=== PATIENT | female | born 1980 | race Caucasian/White ===

== ENCOUNTER 2018-01-26 13:29 | Emergency (ER) | payer BC ==
[~2018-01-26] VITALS: Ht 167.6 cm; Wt 69.8 kg
[~2018-01-26 13:29] MED LIST: MOME0.1L3 TOP
[2018-01-26 13:34] VITALS: TEMP 36.6; Ht 167.6 cm; Wt 69.8 kg
[2018-01-26] MEDS ORDERED: SODIUM CHLORIDE 0.9% 1000ML 1,000 ML IV STA (13:49)
[2018-01-26 14:29] LABS: BASO % 0.8 %; BASO ABS # 0.05 K/uL (0-0.2); EOS ABS # 0.06 K/uL (0-0.5); HEMATOCRIT 39.9 % (37-47); HEMOGLOBIN 13.9 g/dL (12.0-16.0); IG# 0.01 K/uL (0.00-0.02); LYMPH % 29.4 %; LYMPH ABS # 1.73 K/uL (1.2-3.4); MEAN CELL VOLUME 92.6 fL (80-100); MEAN CORPUSCULAR HEMOGLOBIN 32.3 pg (25-34); MEAN CORPUSCULAR HGB CONC 34.8 g/dl (32-36); MEAN PLATELET VOLUME 8.3 fL (7.4-10.4); MONO % 6.3 %; MONO ABS # 0.37 K/uL (0.11-0.59); NEUT % 62.3 %; NEUT ABS # 3.67 K/uL (1.4-6.5); PLATELET COUNT 323 K/uL (130-400); RED CELL DISTRIBUTION WIDTH CV 12.4 % (11.5-14.5); RED CELL DISTRIBUTION WIDTH SD 42.1 fL (36.4-46.3); WHITE BLOOD COUNT 5.89 K/uL (4.8-10.8)
[2018-01-26] MEDS ORDERED: CHOL400T PO (14:40)
[2018-01-26] MEDS ORDERED: VITACAP26 PO (14:40)
[2018-01-26] MEDS ORDERED: ZINC1TAB PO (14:40)
[2018-01-26 14:44] LABS: ALBUMIN 4.3 gm/dl (3.4-5.0); CALCIUM 8.8 mg/dl (8.5-10.1); CREATININE 0.84 mg/dl (0.60-1.20); POTASSIUM 3.4 mmol/L (3.5-5.1); TOTAL PROTEIN 7.6 gm/dl (6.4-8.2)
[2018-01-26 15:25] VITALS: O2SAT 97
--- NOTE | 2018-01-26 15:34 | DIAGNOSTIC IMAGING REPORT ---
LIMITED (US) CLINICAL HISTORY: 37 years-old Female presenting with EVALUATE OB-LINE OUT MAN/VAGINAL BLEEDING, , last menstrual period 12/21/2017, vaginal bleeding with cramping. TECHNIQUE: Real-time grayscale and M-mode Doppler ultrasound imaging of the pelvis was performed first using a transabdominal probe and subsequently transvaginal for better characterization. Color and spectral Doppler ultrasound imaging of the adnexa was also performed. COMPARISON: CT from 04/28/2016. FINDINGS: Uterus: Possible gestational sac noted in the endometrial cavity. The endometrium is thickened measuring 13 mm. Within this at the fundus there is a 12 x 6 x 6 mm hypoechoic irregular saclike region. This appears to be in the right fundal region. The uterine configuration suggests an arcuate uterus. Anteverted uterus. Cervix long and closed. Right adnexum: Right ovary normal. Right ovary measures 3.1 x 1.9 x 2.1 cm. Normal color Doppler flow and arterial and venous waveforms within the ovarian parenchyma. Left adnexum: Left ovary normal. Left ovary measures 4.6 x 1.7 x 2.2 cm. Normal color Doppler flow and arterial and venous waveforms within the ovarian parenchyma. Other: Trace free fluid. IMPRESSION: 1. Irregular hypoechoic saclike region along the right fundus within the endometrium, which may represent a gestational sac. This is indeterminate and would be considered of unknown location. Close clinical and imaging follow-up with trending beta hCG recommended. 2. Arch uterus suspected. 3. No ovarian torsion. Electronically signed by: John Miramontes M.D. 01/26/2018 3:33 PM Dictated Date/Time: 01/26/2018 3:27 PM
[2018-01-26 16:02] VITALS: BP 139/79; PULSE 88; O2SAT 99
--- NOTE | 2018-01-26 18:28 | EMERGENCY ROOM VISIT NOTE ---
History Report prepared by Carissa: Gwendolyn Godwin Under the Supervision of: Dr. Washington Tomlin D.O. First contact with patient: 13:38 Chief Complaint: VAGINAL BLEEDING Stated Complaint: CRAMPS,BLEEDING AT TIMES,SEVERE PAIN History of Present Illness The patient is a 37 year old female who presents to the Emergency Room with complaints of intermittent vaginal bleeding starting a few days ago. The patient states that she has a history of multiple miscarriages. She reports that her LNMP was December 21 and she missed her most recent cycle. She states that she took a test a week ago that was positive. She reports that she went to OB who did a beta HCG that was at 2018 2 days ago. She reports that yesterday it was 2490. The patient states that she was sent to the ED by them for a transvaginal ultrasound to rule out an ectopic . She notes that the bleeding has been intermittent, with the worst being last night. The patient complains of left sided abdominal cramping that disappeared upon arrival to the ED. The patient denies passing any clots, nausea, vomiting, urinary symptoms, and abnormal bowel movements. Source of History: patient Onset: a few days ago Position: other (vaginal) Quality: other (bleeding) Timing: intermittent Associated Symptoms: + abdominal pain, No nausea, No vomiting, No urinary symptoms Note: The patient denies passing any clots and abnormal bowel. Review of Systems See HPI for pertinent positives & negatives. A total of 10 systems reviewed and were otherwise negative. Past Medical & Surgical Medical Problems: (1) History of chlamydia (2) History of multiple miscarriages Family History Cancer Hypertension Social History Smoking Status: Never Smoker Marital Status: Housing Status: lives with significant other Occupation Status: employed Current/Historical Medications Scheduled Cholecalciferol (Vitamin D), 1 TAB PO DAILY Vitamins C & E (Vitamin C), 1 CAP PO DAILY Zinc Gluconate (Zinc), 1 TAB PO DAILY Allergies Coded Allergies: No Known Allergies (Unverified , 01/26/18) Physical Exam Vital Signs Date Time Temp Pulse Resp B/P (MAP) Pulse Ox O2 Delivery O2 Flow Rate FiO2 01/26/18 16:02 88 20 139/79 99 Room Air 01/26/18 15:25 97 Room Air 01/26/18 13:34 36.6 101 18 151/87 100 Room Air Physical Exam GENERAL: Sitting up in chair, alert, well appearing, well nourished, no distress , non-toxic EYE EXAM: normal conjunctiva. OROPHARYNX: no exudate, no erythema, lips, buccal mucosa, and tongue normal and mucous membranes are moist NECK: supple, no nuchal rigidity, no adenopathy, non-tender LUNGS: Clear to auscultation. Normal chest wall mechanics HEART: no murmurs, S1 normal and S2 normal ABDOMEN: abdomen soft, non-tender, normo-active bowel sounds, no masses, no rebound or guarding. BACK: Back is symmetrical on inspection and there is no deformity, no midline tenderness, no CVA tenderness. SKIN: no rashes and no bruising UPPER EXTREMITIES: upper extremities are grossly normal. LOWER EXTREMITIES: No pitting edema. NEURO EXAM: Normal sensorium, cranial nerves II-XII grossly intact, normal speech, no gross weakness of arms, no gross weakness of legs. Medical Decision & Procedures ER Provider Diagnostic Interpretation: Radiology results as stated below per my review and the radiologist's interpretation: LIMITED (US) CLINICAL HISTORY: 37 years-old Female presenting with EVALUATE OB-AIR BRAKE RIGGER/VAGINAL BLEEDING, , last menstrual period 12/21/2017, vaginal bleeding with cramping. TECHNIQUE: Real-time grayscale and M-mode Doppler ultrasound imaging of the pelvis was performed first using a transabdominal probe and subsequently transvaginal for better characterization. Color and spectral Doppler ultrasound imaging of the adnexa was also performed. COMPARISON: CT from 04/28/2016. FINDINGS: Uterus: Possible gestational sac noted in the endometrial cavity. The endometrium is thickened measuring 13 mm. Within this at the fundus there is a 12 x 6 x 6 mm hypoechoic irregular saclike region. This appears to be in the right fundal region. The uterine configuration suggests an arcuate uterus. Anteverted uterus. Cervix long and closed. Right adnexum: Right ovary normal. Right ovary measures 3.1 x 1.9 x 2.1 cm. Normal color Doppler flow and arterial and venous waveforms within the ovarian parenchyma. Left adnexum: Left ovary normal. Left ovary measures 4.6 x 1.7 x 2.2 cm. Normal color Doppler flow and arterial and venous waveforms within the ovarian parenchyma. Other: Trace free fluid. IMPRESSION: 1. Irregular hypoechoic saclike region along the right fundus within the endometrium, which may represent a gestational sac. This is indeterminate and would be considered of unknown location. Close clinical and imaging follow-up with trending beta hCG recommended. 2. Arch uterus suspected. 3. No ovarian torsion. Electronically signed by: John Miramontes M.D. 01/26/2018 3:33 PM Dictated Date/Time: 01/26/2018 3:27 PM Laboratory Results 01/26/18 14:07 Red Blood Count 4.31, Mean Corpuscular Volume 92.6, Mean Corpuscular Hemoglobin 32.3, Mean Corpuscular Hemoglobin Concent 34.8, Mean Platelet Volume 8.3, Neutrophils (%) (Auto) 62.3, Lymphocytes (%) (Auto) 29.4, Monocytes (%) (Auto) 6.3, Eosinophils (%) (Auto) 1.0, Basophils (%) (Auto) 0.8, Neutrophils # (Auto) 3.67, Lymphocytes # (Auto) 1.73, Monocytes # (Auto) 0.37, Eosinophils # (Auto) 0.06, Basophils # (Auto) 0.05 01/26/18 14:07 Test 01/26/18 14:07 01/26/18 14:15 White Blood Count 5.89 K/uL (4.8-10.8) Red Blood Count 4.31 M/uL (4.2-5.4) Hemoglobin 13.9 g/dL (12.0-16.0) Hematocrit 39.9 % (37-47) Mean Corpuscular Volume 92.6 fL (80-100) Mean Corpuscular Hemoglobin 32.3 pg (25-34) Mean Corpuscular Hemoglobin Concent 34.8 g/dl (32-36) Platelet Count 323 K/uL (130-400) Mean Platelet Volume 8.3 fL (7.4-10.4) Neutrophils (%) (Auto) 62.3 % Lymphocytes (%) (Auto) 29.4 % Monocytes (%) (Auto) 6.3 % Eosinophils (%) (Auto) 1.0 % Basophils (%) (Auto) 0.8 % Neutrophils # (Auto) 3.67 K/uL (1.4-6.5) Lymphocytes # (Auto) 1.73 K/uL (1.2-3.4) Monocytes # (Auto) 0.37 K/uL (0.11-0.59) Eosinophils # (Auto) 0.06 K/uL (0-0.5) Basophils # (Auto) 0.05 K/uL (0-0.2) RDW Standard Deviation 42.1 fL (36.4-46.3) RDW Coefficient of Variation 12.4 % (11.5-14.5) Immature Granulocyte % (Auto) 0.2 % Immature Granulocyte # (Auto) 0.01 K/uL (0.00-0.02) Prothrombin Time 10.5 SECONDS (9.0-12.0) Prothromb Time International Ratio 1.0 (0.9-1.1) Activated Partial Thromboplast Time 25.0 SECONDS (21.0-31.0) Partial Thromboplastin Ratio 1.0 Anion Gap 8.0 mmol/L (3-11) Est Creatinine Clear Calc Drug Dose 85.8 ml/min Estimated GFR () 102.9 Estimated GFR (Non- 88.8 BUN/Creatinine Ratio 16.6 (10-20) Calcium Level 8.8 mg/dl (8.5-10.1) Total Bilirubin 0.6 mg/dl (0.2-1) Direct Bilirubin 0.2 mg/dl (0-0.2) Aspartate Amino Transf (AST/SGOT) 15 U/L (15-37) Alanine Aminotransferase (ALT/SGPT) 24 U/L (12-78) Alkaline Phosphatase 49 U/L (45-117) Total Protein 7.6 gm/dl (6.4-8.2) Albumin 4.3 gm/dl (3.4-5.0) Human Chorionic Gonadotropin, Quant 2793 mIU/mL Urine Color YELLOW Urine Appearance CLEAR (CLEAR) Urine pH 5.5 (4.5-7.5) Urine Specific [place] 1.012 (1.000-1.030) Urine Protein NEG (NEG) Urine Glucose (UA) NEG (NEG) Urine Ketones NEG (NEG) Urine Occult Blood NEG (NEG) Urine Nitrite NEG (NEG) Urine Bilirubin NEG (NEG) Urine Urobilinogen NEG (NEG) Urine Leukocyte Esterase NEG (NEG) Urine Test POS (NEG) Laboratory results per my review. Medications Administered Medications (Trade) Dose Ordered Sig/Elizabeth Route Start Time Stop Time Status Last Admin Dose Admin Sodium Chloride 1,000 ml @ 999 mls/hr Q1H1M STAT IV 01/26/18 13:49 01/26/18 14:49 DC 01/26/18 13:49 999 MLS/HR ED Course ED COURSE: Vital signs were reviewed and showed hypertension and tachycardia. The patients medical record was reviewed The above diagnostic studies were performed and reviewed. ED treatments and interventions as stated above. 1344: The patient was evaluated in room A10. A complete history and physical examination was performed. 1349: Ordered NSS 1000 ml @ 999 mls/hr IV. 1549: I discussed the patient's case with Dr. Cornejo -OB-AIR BRAKE RIGGER. They will follow up with the patient in the office. 1552: Upon reevaluation, the patient is resting comfortably.I discussed my findings with the patient and she understands and agrees with the treatment plan. Based on the patients age, coexisting illnesses, exam and lab findings the decision to treat as an outpatient was made. The patient remained stable while under my care. The patient appeared well at the time of discharge. Medical Decision Differential diagnoses includes but is not limited to appendicitis, diverticulitis, small bowel obstruction, malignancy, hernia, urinary tract infection, torsion, and ectopic , perforation, trauma, infectious. Patient is a 37-year-old female who presents the ER with a recent positive test with last known menstrual period of December 21 for abdominal pain and intermittent spotting. Patient has been follow-up with OB and had beta- hCGs trended. Last was 2400 and that was done yesterday. CBC along with BMP, LFTs, bilirubin was unremarkable. Beta-hCG was 2700. UA was negative. Ultrasound showed an irregular hypoechoic saclike in the region of the right fundus within the endometrium. Question gestational sac. Discussed this with OB and reviewed findings. They recommended evaluation in the office tomorrow. At this time there is no signs of ectopic. Patient was updated at bedside. She was hemodynamically stable. Discharge follow-up with OB tomorrow. Oh positive. No RhoGam given. discussed with Pt concerning signs and symptoms to watch out for. Pt was instructed to follow up with their PCP and discussed with the patient their option to return to the ED at anytime for persistent or worsening symptoms. The appropriate anticipatory guidance and out-patient management, including indications for return to the emergency department, were explained at length to the patient and understood. Medication Reconcilliation Current Medication List: was personally reviewed by me Blood Pressure Screening Patient's blood pressure: Elevated blood pressure Blood pressure disposition: Referred to PCP Consults Time Called: [phone] Consulting Physician: Dr. Cornejo -OB-AIR BRAKE RIGGER Returned Call: [phone] I discussed the patient's case with Dr. Cornejo -OB-AIR BRAKE RIGGER. They will follow up with the patient in the office. Impression Primary Impression: Abdominal pain affecting Scribe Attestation The scribe's documentation has been prepared under my direction and personally reviewed by me in its entirety. I confirm that the note above accurately reflects all work, treatment, procedures, and medical decision making performed by me. Departure Information Dispostion Home / Self-Care Referrals John Manzo M.D. (PCP) Forms HOME CARE DOCUMENTATION FORM, IMPORTANT VISIT INFORMATION, WORK / SCHOOL INSTRUCTIONS Patient Instructions My [facility] Additional Instructions Please follow up with your ADMINISTRATIVE RECEPTIONIST with in the next 24 hours. Any worsening of your symptoms, please return to the ED immediately. This includes any fevers greater than 100.4, worsening pain, chest pain, shortness breath, persistent nausea, vomiting, unable to eat or drink, or any other concerning signs or symptoms from your standpoint. Please call ADMINISTRATIVE RECEPTIONIST as soon as you leave here and request an appointment for tomorrow. You will need repeat evaluation and have your beta-hCG recheck.
--- NOTE | 2018-01-27 08:09 | DIAGNOSTIC IMAGING REPORT ---
LIMITED (US) CLINICAL HISTORY: 37 years-old Female presenting with EVALUATE OB-ENVIRONMENTAL PROJECT MANAGER/VAGINAL BLEEDING, , last menstrual period 12/21/2017, vaginal bleeding with cramping. TECHNIQUE: Real-time grayscale and M-mode Doppler ultrasound imaging of the pelvis was performed first using a transabdominal probe and subsequently transvaginal for better characterization. Color and spectral Doppler ultrasound imaging of the adnexa was also performed. COMPARISON: CT from 04/28/2016. FINDINGS: Uterus: Possible gestational sac noted in the endometrial cavity. The endometrium is thickened measuring 13 mm. Within this at the fundus there is a 12 x 6 x 6 mm hypoechoic irregular saclike region. This appears to be in the right fundal region. The uterine configuration suggests an arcuate uterus. Anteverted uterus. Cervix long and closed. Right adnexum: Right ovary normal. Right ovary measures 3.1 x 1.9 x 2.1 cm. Normal color Doppler flow and arterial and venous waveforms within the ovarian parenchyma. Left adnexum: Left ovary normal. Left ovary measures 4.6 x 1.7 x 2.2 cm. Normal color Doppler flow and arterial and venous waveforms within the ovarian parenchyma. Other: Trace free fluid. IMPRESSION: 1. Irregular hypoechoic saclike region along the right fundus within the endometrium, which may represent a gestational sac. This is indeterminate and would be considered of unknown location. Close clinical and imaging follow-up with trending beta hCG recommended. 2. Arch uterus suspected. 3. No ovarian torsion. Electronically signed by: John Miramontes M.D. 01/26/2018 3:33 PM Dictated Date/Time: 01/26/2018 3:27 PM
== END 2018-01-26 16:07 | disposition home or self-care (01) ==
LOC: C.EDB 13:34 → C.EDA 16:07
DX: O99.89 Other specified diseases and conditions complicating pregnancy, childbirth and the puerperium (principal); R10.12 Left upper quadrant pain; R10.32 Left lower quadrant pain; O20.8 Other hemorrhage in early pregnancy; Z79.899 Other long term (current) drug therapy

== ENCOUNTER 2018-02-01 14:45 | Inpatient (IN) | payer BC ==
[~2018-02-01] VITALS: Ht 167.6 cm; Wt 68.0 kg
[~2018-02-01 14:45] MED LIST changes: +CHOL400T PO; -MOME0.1L3 TOP; +VITACAP26 PO; +ZINC1TAB PO
[2018-02-01] MEDS ORDERED: ASCO500T16 PO (14:57)
[2018-02-01] MEDS ORDERED: SODIUM CHLORIDE 0.9% 1000ML 1,000 ML IV ONE (15:06)
[2018-02-01] MEDS ORDERED: SODIUM CHLORIDE 0.9% 1000ML 1,000 ML IV STA (15:06)
--- NOTE | 2018-02-01 15:14 | EMERGENCY ROOM VISIT NOTE ---
History Report prepared by Carissa: Elliott Ventura Under the Supervision of: Dr. Cristian Perez M.D. First contact with patient: 14:55 Chief Complaint: PELVIC PAIN Stated Complaint: PELVIC PAIN, BLEEDING, REFERRED History of Present Illness The patient is a 37 year old female who presents to the Emergency Room with complaints of coming and going pelvic pain for the past week that was a sharp cramping pain that last for around 20 minutes. She states that a week ago and today she had an episode of severe pain, sweating, and she was unable to move due to the pain. The patient additionally has been having vaginal bleeding for the past week, though she is not passing any clots. The patient states that she had an ultrasound today, and she was told to come to the ED for evaluation due to a left tube ectopic . She states that she has a history of 4 miscarriages, and she has had no full term pregnancies. She has no history of ectopics. The patient states that her last period was December 21, and it was normal. She denies any lightheadedness or dizziness. She does not have any active medical problems. Source of History: patient Onset: a week ago Position: pelvis Quality: sharp, cramping Timing: other (coming and going) Note: Associated symptoms: Vaginal bleeding and sweating Review of Systems See HPI for pertinent positives & negatives. A total of 10 systems reviewed and were otherwise negative. Past Medical & Surgical Medical Problems: (1) History of chlamydia (2) History of multiple miscarriages Old medical records were reviewed. Nurse's notes were reviewed and I agree with. Family History Cancer Hypertension Social History Smoking Status: Never Smoker Drug Use: none Marital Status: Housing Status: lives with significant other Occupation Status: employed Current/Historical Medications Scheduled Ascorbic Acid (Ascorbic Acid), 500 MG PO DAILY Cholecalciferol (Vitamin D), 1 TAB PO DAILY Zinc Gluconate (Zinc), 1 TAB PO DAILY Allergies Coded Allergies: No Known Allergies (Unverified , 02/01/18) Physical Exam Vital Signs Date Time Temp Pulse Resp B/P (MAP) Pulse Ox O2 Delivery O2 Flow Rate FiO2 02/01/18 14:49 36.7 85 16 135/86 96 Room Air Physical Exam General: Non-ill appearing young female in no acute distress. HEENT: Normal cephalic atraumatic. Pupils are equal round and reactive to light. Extraocular movements are intact. Oropharynx is pink with moist mucous membranes. No swelling of the mouth lips or tongue. Neck: Supple with a midline trachea. No meningeal signs or stiffness, no JVD or bruits. No Stridor. Chest: Clear to auscultation bilaterally. No wheezes or rhonchi. No increased work of breathing. Heart: regular rate and rhythm. Abdomen: Mild tenderness in the left lower abdomen. No peritonitis. Soft, nondistended without rebound guarding or rigidity. Extremities: No cyanosis clubbing or edema. No calf tenderness or assymetry Spine/Back. Non tender to palpation. No CVA tenderness Skin: Good turgor without rashes. Neurologic exam: Cranial nerves two through 12 are intact. Motor and sensation are intact and symmetrical throughout. Medical Decision & Procedures Laboratory Results 02/01/18 15:37 Red Blood Count 4.18, Mean Corpuscular Volume 92.1, Mean Corpuscular Hemoglobin 32.1, Mean Corpuscular Hemoglobin Concent 34.8, Mean Platelet Volume 8.1, Neutrophils (%) (Auto) 63.4, Lymphocytes (%) (Auto) 28.7, Monocytes (%) (Auto) 5.9, Eosinophils (%) (Auto) 1.2, Basophils (%) (Auto) 0.7, Neutrophils # (Auto) 4.74, Lymphocytes # (Auto) 2.15, Monocytes # (Auto) 0.44, Eosinophils # (Auto) 0.09, Basophils # (Auto) 0.05 02/01/18 15:37 Test 02/01/18 15:37 White Blood Count 7.48 K/uL (4.8-10.8) Red Blood Count 4.18 M/uL (4.2-5.4) Hemoglobin 13.4 g/dL (12.0-16.0) Hematocrit 38.5 % (37-47) Mean Corpuscular Volume 92.1 fL (80-100) Mean Corpuscular Hemoglobin 32.1 pg (25-34) Mean Corpuscular Hemoglobin Concent 34.8 g/dl (32-36) Platelet Count 298 K/uL (130-400) Mean Platelet Volume 8.1 fL (7.4-10.4) Neutrophils (%) (Auto) 63.4 % Lymphocytes (%) (Auto) 28.7 % Monocytes (%) (Auto) 5.9 % Eosinophils (%) (Auto) 1.2 % Basophils (%) (Auto) 0.7 % Neutrophils # (Auto) 4.74 K/uL (1.4-6.5) Lymphocytes # (Auto) 2.15 K/uL (1.2-3.4) Monocytes # (Auto) 0.44 K/uL (0.11-0.59) Eosinophils # (Auto) 0.09 K/uL (0-0.5) Basophils # (Auto) 0.05 K/uL (0-0.2) RDW Standard Deviation 42.2 fL (36.4-46.3) RDW Coefficient of Variation 12.5 % (11.5-14.5) Immature Granulocyte % (Auto) 0.1 % Immature Granulocyte # (Auto) 0.01 K/uL (0.00-0.02) Anion Gap 7.0 mmol/L (3-11) Est Creatinine Clear Calc Drug Dose 89.0 ml/min Estimated GFR () 107.5 Estimated GFR (Non- 92.8 BUN/Creatinine Ratio 14.9 (10-20) Calcium Level 8.8 mg/dl (8.5-10.1) Laboratory studies as stated above per my review. Medications Administered Medications (Trade) Dose Ordered Sig/Elizabeth Route Start Time Stop Time Status Last Admin Dose Admin Sodium Chloride 1,000 ml @ 999 mls/hr Q1H1M STAT IV 02/01/18 15:06 02/01/18 16:06 DC 02/01/18 15:55 999 MLS/HR ED Course 1455: Past medical records reviewed. The patient was evaluated in room C6, and a complete history and physical examination were performed. 1506: Sodium Chloride 1000 ml @ 150 mls/hr IV, Sodium Chloride 1000 ml @ 999 mls /hr IV 1509: I discussed the patient's case with Dr. Garcia PRE SALES TECHNICAL ENGINEER, and she is going to come evaluate the patient for further management. 1518: The patient is still waiting for the blood work to come back. 1612: I reevaluated the patient, and she is going to go to the OR. Medical Decision Differentials include, but are not limited to; ectopic , anemia, infection, electrolyte or metabolic abnormality. This patient comes in as described above. She has been having vaginal bleeding and left abdominal pain for about a week. She was seen here and a negative ultrasound. She follow-up with her doctor and saw her whiting can worker yesterday. She had outpatient ultrasound today at [facility] which showed a left adnexal ectopic . there is complex free fluid in the left adnexal area. On my initial exam, she looks well and has stable vital signs. Her abdomen is minimally tender. IV access established and blood work was obtained. I called and consulted the PRE SALES TECHNICAL ENGINEER doctor to come see her. She was typed and screened. Her hemoglobin is stable. Her vital signs are stable. She has no elevation of her white count. She has no acute electrolyte or metabolic abnormalities. She was seen by the whiting can worker who is going to take her to the operating room for treatment of her ectopic . She was hydrated with IV normal saline and kept n.p.o. while in the ER Medication Reconcilliation Current Medication List: was personally reviewed by me Blood Pressure Screening Patient's blood pressure: Elevated blood pressure Monitored by the hospitalist Consults Time Called: 1507 Consulting Physician: Dr. Garcia PRE SALES TECHNICAL ENGINEER Returned Call: [phone] I discussed the patient's case with Dr. Garcia PRE SALES TECHNICAL ENGINEER, and she is going to come evaluate the patient for further management. Impression Primary Impression: Ectopic Scribe Attestation The scribe's documentation has been prepared under my direction and personally reviewed by me in its entirety. I confirm that the note above accurately reflects all work, treatment, procedures, and medical decision making performed by me. Departure Information Dispostion Being Evaluated By Surgeon John Park M.D. (PCP) Patient Instructions My [facility]
[2018-02-01 15:52] LABS: BASO % 0.7 %; BASO ABS # 0.05 K/uL (0-0.2); EOS % 1.2 %; EOS ABS # 0.09 K/uL (0-0.5); HEMATOCRIT 38.5 % (37-47); HEMOGLOBIN 13.4 g/dL (12.0-16.0); IG# 0.01 K/uL (0.00-0.02); LYMPH % 28.7 %; LYMPH ABS # 2.15 K/uL (1.2-3.4); MEAN CELL VOLUME 92.1 fL (80-100); MEAN CORPUSCULAR HEMOGLOBIN 32.1 pg (25-34); MEAN CORPUSCULAR HGB CONC 34.8 g/dl (32-36); MEAN PLATELET VOLUME 8.1 fL (7.4-10.4); MONO % 5.9 %; MONO ABS # 0.44 K/uL (0.11-0.59); NEUT % 63.4 %; NEUT ABS # 4.74 K/uL (1.4-6.5); PLATELET COUNT 298 K/uL (130-400); RED CELL DISTRIBUTION WIDTH CV 12.5 % (11.5-14.5); RED CELL DISTRIBUTION WIDTH SD 42.2 fL (36.4-46.3); WHITE BLOOD COUNT 7.48 K/uL (4.8-10.8)
[2018-02-01 16:07] LABS: CALCIUM 8.8 mg/dl (8.5-10.1); CREATININE 0.81 mg/dl (0.60-1.20); POTASSIUM 3.3 mmol/L (3.5-5.1)
[2018-02-01] MEDS ORDERED: ROCURONIUM BROMIDE 10 MG/ML 5 ML VIAL ONE (16:16)
[2018-02-01] MEDS ORDERED: PROPOFOL IV EMULSION 10 MG/ML 20 ML VIAL ONE (16:16)
[2018-02-01] MEDS ORDERED: LARYING-O-JET KIT (LTA) ONE (16:16)
[2018-02-01] MEDS ORDERED: KETOROLAC TROMETHAMINE 30 MG/ML VIAL ONE (16:16)
[2018-02-01] MEDS ORDERED: LIDOCAINE HCL 2% 2 ML VIAL (20MG/ML) ONE (16:16)
[2018-02-01] MEDS ORDERED: DEXAMETHASONE SOD INJ 4 MG/ML VIAL ONE (16:16)
[2018-02-01] MEDS ORDERED: GLYCOPYRROLATE INJ 0.2 MG/ML VIAL ONE (16:16)
[2018-02-01] MEDS ORDERED: ONDANSETRON INJ 2 MG/ML 2 ML VIAL ONE (16:16)
[2018-02-01] MEDS ORDERED: FENTANYL CITRATE INJ 50 MCG/1 ML 2 ML VIAL ONE (16:16)
[2018-02-01] MEDS ORDERED: NEOSTIGMINE METHYLSULFATE 5 MG/5 ML SYR ONE (16:16)
[2018-02-01] MEDS ORDERED: MIDAZOLAM HCL 1 MG/ML 2ML VIAL ONE (16:16)
--- NOTE | 2018-02-01 17:14 | HISTORY & PHYSICAL EXAMINATION ---
DATE OF ADMISSION: 02/01/2018 CHIEF COMPLAINT: Sent from office for ectopic . HISTORY OF PRESENT ILLNESS: The patient is a 37-year-old G5, P0-1-3-0 at 6 weeks of gestation by her last period on 12/21/2017, who started to have vaginal spotting and pelvic pain about a week ago. Pain was coming on and off, and the spotting has been mild. She was seen in the ER last week and found to have positive beta hCG at count of 2700, and there was no definable intrauterine . Her count increased to 3800 then to 5800. Pain has been stable and recommended to call with increased pain. Last night, her pain got worse. It started to be sharp, low in the pelvis, and she was unable to move. She was sweating and had nausea with pain. She woke up this morning and went to her work. Pain was still there. She called the office, and recommended to come in for US. She had ultrasound today at [facility]. Ultrasound showed there was no intrauterine , and there was an ectopic noted on the left adnexa with a measurable pole, yolk sac, and cardiac activity of 107 beats per minute. She was directed to ER for further management. Then I was called by ER physician. When I encountered her in the ER room, she was sitting on the chair, as dressed and appeared to be comfortable, and talking. She states her pain is mild but is still there. It has not been sharp today. She denies dizziness, lightheadedness, fever, chills, chest pain, shortness of breath, difficulty with urination or bowel movements. She states her spotting has been mild. She ate lunch around 11:00 a.m. and nothing since then. The patient has poor OB history. She is not sure, but she said she miscarried 4 pregnancies before, one was IVF and she had twins, 1 baby did not survive, and other baby had to come out with it, she delivered them around 20 weeks. She had another 3 miscarriages in early stages, and she also has a history of laparoscopy to open up her tubes which were all blocked from chlamydia infection in 2001. The patient says she was a smoker but she quit. She started again, and she quit again. Her periods had been irregular, every 25-27 days, except the last cycle which was 22 days. She was using calendar method and avoiding , but states it failed as her cycle was short at 22 days. She has been with the same partner, her for 11 years. PAST MEDICAL HISTORY: As above, history of chlamydia as a teenager and history of multiple miscarriages, history of premature labor of twins, history of PID. PAST SURGICAL HISTORY: Tonsillectomy and laparoscopy for tubal obstruction. SOCIAL HISTORY: The patient is , lives with her , and she works in a jewelry store. The patient was a smoker but she quit. She denies alcohol or drug use. GYNECOLOGIC HISTORY: As above. ALLERGIES: No known drug allergies. MEDICATIONS: Vitamin D, vitamin C and E, and zinc tablets. PHYSICAL EXAMINATION: VITAL SIGNS: Her blood pressure is 135/86, pulse 85, temperature 36.7, pulse oximetry 96% on room air. GENERAL: She is alert, oriented x3, not in acute distress. She is comfortable talking. CARDIOVASCULAR SYSTEM: S1 and S2, RRR. LUNGS: Clear to auscultation bilaterally. ABDOMEN: Soft, nontender, nondistended. Bowel sounds present. She has left lower quadrant tenderness upon deep palpation. No rebound. EXTREMITIES: Nontender. No edema. PELVIC: External genitalia within normal limits. Normal labia. Speculum exam shows normal vagina. There is minimal dark bloody discharge on the vaginal burns. Cervix looks closed and nulliparous. There is bloody mucus on the cervix. Cultures were taken. Bimanual exam shows cervical motion tenderness and left adnexal pain. Uterus is anteverted, slightly enlarged, about 8 weeks size. Right adnexa nonpalpable, nontender. Left adnexa is nonpalpable but tender to palpation. LABORATORY DATA: Patient is drawn CBC and chemistry, they are still pending. ASSESSMENT AND PLAN: The patient is a 37-year-old G5, P0-1-3-0 at 6 weeks by her LMP of 12/21/2017 and presenting with elevated beta hCG, no intrauterine , ultrasound showing ectopic with yolk sac and heartbeat on the left adnexa. Vital signs are stable and afebrile. Clinically stable. Discussed the findings, the treatment options, and recommended surgical treatment of ectopic . Understands that surgery has risks of anesthesia, bleeding, infection, injury to the surrounding organs like bowel, bladder, adhesion, scarring. She understands that tubal may be treated with salpingostomy or salpingectomy which may be needed depending on the findings. She prefers to save the tube if we can. Discussed methotrexate treatment as well, which may fail due to presence of heart rate and had high levels of beta hCG. The patient understands. She is fully informed, and she agreed with the plan, and she signed the informed consent, and all questions were answered. LEONIDAS
[2018-02-01] MEDS ORDERED: CISATRACURIUM BESYLATE IV SOLN 2 MG/ML 10 ML VIAL ONE (18:18)
[2018-02-01] MEDS ORDERED: BUPIVACAINE 0.5 % 5 MG/1 ML PF 10ML VIAL ONE (20:01)
--- NOTE | 2018-02-01 20:44 | OB/GYN Progress Note ---
INTERMEDIATE CARD TENDER Progress Note Date of Service: February 01, 2018. Late entry from 1600 Patient's CBC is back: Last 24 Hours Test 02/01/18 15:37 02/01/18 20:39 White Blood Count 7.48 K/uL Red Blood Count 4.18 M/uL Hemoglobin 13.4 g/dL Hematocrit 38.5 % Mean Corpuscular Volume 92.1 fL Mean Corpuscular Hemoglobin 32.1 pg Mean Corpuscular Hemoglobin Concent 34.8 g/dl Platelet Count 298 K/uL Mean Platelet Volume 8.1 fL Neutrophils (%) (Auto) 63.4 % Lymphocytes (%) (Auto) 28.7 % Monocytes (%) (Auto) 5.9 % Eosinophils (%) (Auto) 1.2 % Basophils (%) (Auto) 0.7 % Neutrophils # (Auto) 4.74 K/uL Lymphocytes # (Auto) 2.15 K/uL Monocytes # (Auto) 0.44 K/uL Eosinophils # (Auto) 0.09 K/uL Basophils # (Auto) 0.05 K/uL RDW Standard Deviation 42.2 fL RDW Coefficient of Variation 12.5 % Immature Granulocyte % (Auto) 0.1 % Immature Granulocyte # (Auto) 0.01 K/uL Sodium Level 138 mmol/L Potassium Level 3.3 mmol/L Chloride Level 106 mmol/L Carbon Dioxide Level 25 mmol/L Anion Gap 7.0 mmol/L Blood Urea Nitrogen 12 mg/dl Creatinine 0.81 mg/dl Est Creatinine Clear Calc Drug Dose 89.0 ml/min Estimated GFR () 107.5 Estimated GFR (Non- 92.8 BUN/Creatinine Ratio 14.9 Random Glucose 89 mg/dl Calcium Level 8.8 mg/dl Human Chorionic Gonadotropin, Quant 9128 mIU/mL VSS Afebrile OR is notified Will take her to OR after emergencies will be over Continue to monitor closely
[2018-02-01] MEDS ORDERED: ZOLPIDEM TARTRATE 5 MG TAB PO PRN (20:45)
--- NOTE | 2018-02-01 20:49 | OB/GYN Progress Note ---
INDUSTRIAL SPRAYPAINTER Progress Note Date of Service: February 01, 2018. Patient was called to OR and was ready in PACU for planned surgery Dr. Camacho was interviewing her but then he was called to ICU for another emergency He had to hold on the case for tonight Patient feels well no complaints No pain Has been ambulating to BR with no dizziness VSS Afebrile Date Time Temp Pulse Resp B/P (MAP) Pulse Ox O2 Delivery O2 Flow Rate FiO2 02/01/18 19:05 75 18 133/74 97 Room Air 02/01/18 17:38 77 18 132/60 100 Room Air 02/01/18 14:49 36.7 85 16 135/86 96 Room Air Discussed the situation and the reason for her case to be delayed and she understands Plan to admit her to [facility] floor for close monitoring and repeat H&H and take to OR with next available opening All questions were answered
[2018-02-01] MEDS ORDERED: CEFAZOLIN SOD 2000MG/15 ML IV PUSH IV SCH (21:00)
[2018-02-01 22:20] VITALS: BP 110/62; PULSE 68; TEMP 36.7; O2SAT 99; Ht 167.6 cm; Wt 68.0 kg
[2018-02-01] MEDS: LACTATED RINGER'S 1000ML 1,000 ML IV SCH (22:26)
[2018-02-01 22:36] LABS: BASO % 0.6 %; BASO ABS # 0.04 K/uL (0-0.2); EOS % 2.2 %; EOS ABS # 0.14 K/uL (0-0.5); HEMATOCRIT 36.7 % (37-47); HEMOGLOBIN 12.7 g/dL (12.0-16.0); IG# 0.01 K/uL (0.00-0.02); LYMPH % 39.6 %; LYMPH ABS # 2.52 K/uL (1.2-3.4); MEAN CELL VOLUME 93.6 fL (80-100); MEAN CORPUSCULAR HEMOGLOBIN 32.4 pg (25-34); MEAN CORPUSCULAR HGB CONC 34.6 g/dl (32-36); MEAN PLATELET VOLUME 8.2 fL (7.4-10.4); MONO % 8.5 %; MONO ABS # 0.54 K/uL (0.11-0.59); NEUT % 48.9 %; NEUT ABS # 3.12 K/uL (1.4-6.5); PLATELET COUNT 298 K/uL (130-400); RED CELL DISTRIBUTION WIDTH CV 12.7 % (11.5-14.5); RED CELL DISTRIBUTION WIDTH SD 43.3 fL (36.4-46.3); WHITE BLOOD COUNT 6.37 K/uL (4.8-10.8)
[2018-02-01 23:20] VITALS: BP 103/55; PULSE 81; TEMP 36.7; O2SAT 99
[2018-02-02] VITALS (9 sets, daily range): BP systolic 97–126; BP diastolic 48–73; PULSE 58–91; TEMP 36.3–36.8; O2SAT 96–100
[2018-02-02 05:31] LABS: BASO ABS # 0.04 K/uL (0-0.2); EOS % 2.9 %; EOS ABS # 0.12 K/uL (0-0.5); HEMATOCRIT 32.9 % (37-47); HEMOGLOBIN 11.5 g/dL (12.0-16.0); LYMPH % 34.2 %; LYMPH ABS # 1.41 K/uL (1.2-3.4); MEAN CELL VOLUME 93.5 fL (80-100); MEAN CORPUSCULAR HEMOGLOBIN 32.7 pg (25-34); MEAN PLATELET VOLUME 7.9 fL (7.4-10.4); MONO % 12.9 %; MONO ABS # 0.53 K/uL (0.11-0.59); NEUT ABS # 2.02 K/uL (1.4-6.5); PLATELET COUNT 234 K/uL (130-400); RED CELL DISTRIBUTION WIDTH CV 12.6 % (11.5-14.5); RED CELL DISTRIBUTION WIDTH SD 42.5 fL (36.4-46.3); WHITE BLOOD COUNT 4.12 K/uL (4.8-10.8)
[2018-02-02] MEDS ORDERED: ACETAMINOPHEN 325 MG TAB PO PRN ×2 (05:45→10:15)
[2018-02-02] MEDS ORDERED: ACETAMINOPHEN 325 MG TAB ONE (06:07)
[2018-02-02] MEDS: LACTATED RINGER'S 1000ML 1,000 ML IV SCH (06:08)
[2018-02-02] MEDS ORDERED: DEXAMETHASONE SOD INJ 4 MG/ML VIAL ONE (07:37)
[2018-02-02] MEDS ORDERED: PROPOFOL IV EMULSION 10 MG/ML 20 ML VIAL ONE (07:37)
[2018-02-02] MEDS ORDERED: FENTANYL CITRATE INJ 50 MCG/1 ML 2 ML VIAL ONE ×2 (07:37)
[2018-02-02] MEDS ORDERED: ONDANSETRON INJ 2 MG/ML 2 ML VIAL ONE (07:37)
[2018-02-02] MEDS ORDERED: MIDAZOLAM HCL 1 MG/ML 2ML VIAL ONE (07:37)
[2018-02-02] MEDS ORDERED: LIDOCAINE HCL 2% 2 ML VIAL (20MG/ML) ONE (07:37)
[2018-02-02] MEDS ORDERED: D5W AND LACTATED RINGERS 1,000 ML IV SCH ×2 (07:45→10:13)
--- NOTE | 2018-02-02 07:59 | History & Physical Bridge Note ---
H&P Re-Evaluation Bridge Note: I have examined the patient, reviewed the History & Physical and in the interval since the performance of the History & Physical I have noted the following changes of clinical significance: No changes noted
[2018-02-02] MEDS ORDERED: ACETAMINOPHEN 1000 MG/100 ML IV IV ONE (08:09)
[2018-02-02] MEDS ORDERED: LIDOCAINE HCL 2% JELLY 30 ML TUBE ONE (08:09)
[2018-02-02] MEDS ORDERED: BUPIVACAINE 0.5 % 5 MG/1 ML PF 10ML VIAL ONE (08:27)
[2018-02-02] MEDS ORDERED: CEFAZOLIN SOD 1 GM VIAL ONE (09:00)
[2018-02-02] MEDS ORDERED: GLYCOPYRROLATE INJ 0.2 MG/ML VIAL ONE (09:20)
[2018-02-02] MEDS ORDERED: NEOSTIGMINE METHYLSULFATE 5 MG/5 ML SYR ONE (09:20)
[2018-02-02] MEDS ORDERED: ROCURONIUM BROMIDE 10 MG/ML 5 ML VIAL ONE (09:20)
[2018-02-02] MEDS ORDERED: FENTANYL CITRATE INJ 50 MCG/1 ML 2 ML VIAL IV PRN (09:45)
[2018-02-02] MEDS ORDERED: ONDANSETRON INJ 2 MG/ML 2 ML VIAL IV PRN ×2 (09:45→10:15)
[2018-02-02] MEDS ORDERED: EpHEDrine SULFATE INJ 50 MG/ML AMP IV PRN (09:45)
[2018-02-02] MEDS ORDERED: ATROPINE SULFATE 0.1 MG/ML 5ML SYR IV PRN (09:45)
[2018-02-02] MEDS ORDERED: HYDROmorphone INJ 0.5 MG/0.5 ML SYR IV PRN (09:45)
[2018-02-02] MEDS ORDERED: EpHEDrine SULFATE 50MG/5ML SYR ONE (09:56)
--- NOTE | 2018-02-02 10:08 | [facility] Post Operative Brief Note ---
Immediate Operative Summary Operative Date February 02, 2018. Pre-Operative Diagnosis Left Adnexal Ectopic Post-Operative Diagnosis Left Tubal Ectopic Procedure(s) Performed Exam under Anesthesia, Operative Laparoscopic Treatment of Ectopic Pregancy, Left Salpingectomy Surgeon Dr. Garcia Tub Mender Surgeon(s) Dr. Shivam Vuong Estimated Blood Loss 50 cc Findings Consistent with Post-Op Diagnosis Fluids (cc crystalloids) 1000 ml Specimens A: left tubal Drains english 60 ml urine Anesthesia Type General Complication(s) none Disposition Disposition: Recovery Room / PACU Overlapping Procedure I was present for: the critical portions of procedure. I was immediately available: during the entire case
[2018-02-02] MEDS ORDERED: KETOROLAC TROMETHAMINE 30 MG/ML VIAL IV. PRN (10:15)
[2018-02-02] MEDS ORDERED: OXYCODONE/ACETAMINOPHEN 5-325 TAB PO PRN ×2 (10:15)
[2018-02-02] MEDS ORDERED: BISACODYL 10 MG SUPP PR PRN (10:15)
[2018-02-02] MEDS ORDERED: PROMETHAZINE HCL INJ 12.5 MG in SODIUM CHLORIDE 0.9% 50ML 50 ML IV PRN (10:15)
[2018-02-02] MEDS ORDERED: MAGNESIUM HYDROXIDE SUSP 30 ML UDC PO PRN (10:15)
[2018-02-02] MEDS ORDERED: MEPERIDINE HCL 50 MG/ML CARP IV PRN (10:15)
[2018-02-02] MEDS ORDERED: IBUPROFEN 600 MG TAB PO PRN (10:15)
[2018-02-02] MEDS ORDERED: PROMETHAZINE HCL INJ 25 MG in SODIUM CHLORIDE 0.9% 50ML 50 ML IV PRN (10:15)
[2018-02-02] MEDS ORDERED: MTR600X PO (10:36)
[2018-02-02] MEDS ORDERED: OXYC-57 PO (10:36)
--- NOTE | 2018-02-02 10:37 | Discharge Instructions ---
Discharge Instructions Date of Service February 02, 2018. Admission Reason for Admission: Ectopic Discharge Discharge Diagnosis / Problem: Laparoscopy, left salpingectomy Discharge Goals Goal(s): Routine recovery after surgery Activity Recommendations Activity Limitations: as noted below ACTIVITY RECOMMENDATIONS: * Rest the first 2-3 days. You should be back to your normal activity levels by day 3. * No heavy lifting for 2 weeks. * No intercourse, tampons or douching for 1-2 weeks. * You may shower the next day. * Do not drive anytime that you are taking narcotic pain medicines. RETURN TO SCHOOL/WORK: * May return to school or work after 2-3 days. DIET: Nausea may occur in the immediate post-operative period. If so, take clear liquids such as tea, bouillon, apple juice until all nausea has subsided, then resume usual diet. MEDICATIONS: Resume previous medications unless instructed otherwise by your surgeon. Ibuprofen 200mg 2-3 tablets every 4-6 hours as needed -- OR -- Aleve 2 tablets every 8-12 hours as needed for post-operative discomfort Medications are over the counter. Tylenol may be used if above medications are contraindicated or not preferred. Medication should be taken with food or milk. Do not take on an empty stomach. SPECIAL CARE INSTRUCTIONS: * Check temperature twice daily for one week. report any elevation over 101 degrees. * You may experience some vagina spotting and/or bleeding. This is normal for 1 -2 weeks and should not be heavier than a normal period. If it is unusual in amount, call your physician. * Post-operative discomfort may consist of a sore throat, a "bloated" feeling and pain in the shoulders. these are normal symptoms, which usually only last for 2-3 days. * Remove band-aids tomorrow and shower. There is no need to replace band-aids unless there is drainage or discomfort. FOLLOW UP VISIT: Call your doctor's office for a post-operative 2 week visit if not already scheduled. . Current Hospital Diet Patient's current hospital diet: Clear Liquid Diet Discharge Diet Recommended Diet: Regular Diet Procedures Procedures Performed: Exam under Anesthesia, Operative Laparoscopic Treatment of Ectopic Pregancy, Left Salpingectomy Pending Studies Studies pending at discharge: yes List of pending studies: pathology Medical Emergencies . Who to Call and When: Medical Emergencies: If at any time you feel your situation is an emergency, please call 911 immediately. . Non-Emergent Contact Non-Emergency issues call your: Specialist Call Non-Emergent contact if: temperature is above 100.5, your pain is not controlled, your pain is worsening . . "Provider Documentation" section prepared by Jacob Garcia. .
--- NOTE | 2018-02-02 11:04 | Anesthesiology Progress Note ---
Anesthesia Post Op Note Date & Time February 02, 2018 at 11:04 Vital Signs Pain Intensity: 2 Vital Signs Past 12 Hours Date Time Temp Pulse Resp B/P (MAP) Pulse Ox O2 Delivery O2 Flow Rate FiO2 02/02/18 11:00 70 18 121/71 100 Nasal Cannula 2 02/02/18 10:45 36.2 52 13 120/73 100 Nasal Cannula 2 02/02/18 10:35 54 20 125/71 100 Oxymask 10 02/02/18 10:25 58 16 113/72 100 Oxymask 10 02/02/18 10:15 36.4 57 15 120/66 100 Oxymask 10 02/02/18 07:20 36.8 80 16 121/73 (89) 96 Room Air 02/02/18 07:20 96 Room Air 02/02/18 03:00 36.8 79 16 104/61 (75) 98 Room Air 02/02/18 01:25 36.7 69 16 97/53 (68) 96 Room Air 02/02/18 00:20 36.6 63 16 113/61 (78) 99 Room Air 02/02/18 00:20 99 Room Air 02/01/18 23:20 36.7 81 16 103/55 (71) 99 Room Air Notes Mental Status: alert / awake / arousable, participated in evaluation Pt Amnestic to Procedure: Yes Nausea / Vomiting: adequately controlled Pain: adequately controlled Airway Patency, RR, SpO2: stable & adequate BP & HR: stable & adequate Hydration State: stable & adequate Anesthetic Complications: no major complications apparent
--- NOTE | 2018-02-02 13:04 | OPERATIVE REPORT ---
DATE OF OPERATION: 02/02/2018 PREOPERATIVE DIAGNOSIS: The patient is a 37-year-old G5, P0-1-3-0 at 6 weeks of gestation by her LMP and no intrauterine , a left adnexal left tubal with heart rate per ultrasound. POSTOPERATIVE DIAGNOSIS: The patient is a 37-year-old G5, P0-1-3-0 at 6 weeks of gestation by her LMP and no intrauterine , a left adnexal left tubal with heart rate per ultrasound, left tubal ectopic . PROCEDURE: Examination under anesthesia, operative laparoscopy, left salpingectomy, lysis of adhesion. SURGEON: Jacob Garcia M.D. SHOE PULLER: Shivam Vuong M.D. ESTIMATED BLOOD LOSS: 50. FLUIDS: 1000 mL of lactated Ringer's. DRAINS: Cesar drained 60 mL of clear urine. ANESTHESIA: General endotracheal, Dr. Camacho. COMPLICATIONS: None. FINDINGS: Exam under anesthesia revealed slightly enlarged 8-week size anteverted uterus and nonpalpable adnexa. Intraoperative findings, an 8-week size uterus with multiple small subserosal fibroids and normal bilateral ovaries and left fallopian tube was enlarged with ectopic from distal fimbrial end including lateral two-thirds/ whole ampullary portion of it and right fallopian tube appeared to be thinnned, phimotic with no normal fimbria noted at the end and there was adhesion between the omentum to the right pelvic sidewall, normal upper abdomen and normal bowel surfaces. DESCRIPTION OF PROCEDURE: The patient was taken to the operating room where general anesthesia was given without difficulty. She was placed in dorsal lithotomy position, prepared and draped in usual sterile fashion and exam under anesthesia was done with above findings. A Cesar catheter was inserted to drain the bladder during surgery. A weighted speculum was placed in the patient's vagina. Cervix was visualized, grasped with single tooth tenaculum and a Narrato uterine manipulator was placed in the patient's uterus and attached to the cervix to provide manipulation during surgery and gloves were changed. Attention was turned to the patient's abdomen and 0.5% lidocaine was injected to the periumbilical skin and then the skin was held with two Allis clamps and a skin incision was made with the scalpel and the incision was carried to the fascia with the tip of scalpel and then the fascia was identified, grasped with the Salvador clamps and it was entered with the Veress needle and the normal saline test was done. It was freely flowing into the peritoneal cavity and then it was suctioned back to clear fluids. The carbon dioxide gas was attached to the Veress needle and pneumoperitoneum was obtained. Entrance pressure was 3 mmHg An intra-abdominal pressure was set to 15 mmHg. Then with 5 mm trocar Optiscope was used and entered to the abdomen under direct visualization. Upon visualization of the abdomen, the bowel surfaces were seen to be normal. Upper abdomen and liver appeared to be normal and then Trendelenburg position was obtained. The uterus was brought up to the the midline with the manipulator and there was about 50 mL of blood with clots in the posterior cul-de-sac. Left fallopian tube was dilated and purple from lateral 2/3 rds till the fimbrial end including whole portion of ampulla. No active bleeding was noted from the tube. Ovaries were within normal limits and the right fallopian tube was as above. The pictures were taken. Then two more trocars were placed in the left and right lower quadrants. Only one on RLQ was 10 mm. The pelvis was irrigated and the suctioned. The left fallopian tube was held with atraumatic grasper and it was coagulatedx3 stepwise starting from isthmic end till the fimbrial end and completely excised with Ligature device. It was placed in endobag and brought out from 10 mm trochar site. The surgical bed was irrigated with normal saline and suctioned. It was hemostatic. Then the filmy adhesion of omentum to right pelvic side was coagulated with ligature device and cut. Excellent hemostasis was achieved at the end. The pictures were taken. The instruments were removed from abdomen, the gas was emptied. The 10 mm trochar's site fascia was repaired with number 0 vicryl and the skin incisions were closed with 4-0 Monocryl in subcuticular fashion. The uterine manipulator was removed and cervix was hemostatic. The procedure was ended. The patient was tolerated the procedure well. Sponge instrument and needle count was correct x3. She was given 2 grams of Cefazolin before surgery. She was extubated and taken to recovery room in stable condition. No complications happened. I was and Dr. Vuong was present during whole procedure. I attest to the content of the Intraoperative Record and any orders documented therein. Any exceptions are noted below. MTDD
--- NOTE | 2018-02-02 13:04 | Progress Note ---
Progress Note Date of Service February 02, 2018. Progress Note POST OP NOTE pt doing well No complaints tolerating Po food and Meds PE; VSS Ht . S!S2 R?R/r Lung; CTA Bilat. No W/C/R Abd; Nt Nd + BS Ext.No C/c/e A/p Laparoscopy left ectopic salpingectomy pt doing well d/c ho,me with instructions
[2018-02-02] MEDS ORDERED: DOCUSATE SODIUM 100 MG CAP PO SCH (21:00)
== END 2018-02-02 13:20 | disposition home or self-care (01) | DRG 777 ==
LOC: C.EDB 14:46 → C.MS4N 20:42 → ENRESERV 21:47
PROVIDERS: ADMIT Obstetrics & Gynecology; ATTEND Obstetrics & Gynecology
PROC: 0UT64ZZ Resection of Left Fallopian Tube, Percutaneous Endoscopic Approach (ICD-10-PCS; principal; 2018-02-02 10:00)
DX: O00.102 Left tubal pregnancy without intrauterine pregnancy (principal); Z3A.01 Less than 8 weeks gestation of pregnancy; Z87.51 Personal history of pre-term labor; Z87.59 Personal history of other complications of pregnancy, childbirth and the puerperium; Z86.19 Personal history of other infectious and parasitic diseases; Z87.891 Personal history of nicotine dependence; Z98.890 Other specified postprocedural states